=== PATIENT | female | born 1935 | race Caucasian/White ===

== ENCOUNTER 2017-04-11 17:42 | Emergency (ER) | payer MEDICARE, BC ==
[~2017-04-11] VITALS: Ht 157.5 cm; Wt 60.0 kg
[2017-04-11 17:43] VITALS: BP 140/70; PULSE 112; RESP 18; TEMP 98.2; O2SAT 94
--- NOTE | 2017-04-11 18:17 | PD ---
HPI Chief Complaint: Neuro Symptoms/ Deficits Time Seen by Provider: 18:01 Travel History International Travel<30 days: No Contact w/Intl Traveler<30days: No Traveled to known affect area: No History of Present Illness HPI 81-year-old female presents to the emergency department with concern of worsening of slurred speech and dizziness today. She has had dizziness and slurred speech for a week and was seen at [facility] on Wednesday and had an MRI of the brain and a CTA of the neck, which per the patient showed an aneurysm ; she has the reports with her. The MRI of the brain without contrast showed no acute intracranial process. The CT of the neck showed no hemodynamically significant stenosis or occlusion in the extracranial carotid or vertebral arteries. She is supposed to follow-up with a neurosurgeon in [facility] that she would rather follow up with somebody from [place]. She denies headache. Denies focal deficits or weakness. Denies change in gait. Denies weakness. Denies confusion, disorientation. Explains dizziness as if she feels like she is drunk. History of kidney stones. Denies other significant past medical history. Allergies to morphine, Versed and Meperidine. Primary care provider is Dr. Wood. She has no other medical complaints. No other modifying factors or associated signs and symptoms. [facility] Social History Tobacco Use: No Allergies-Medications (Allergen,Severity, Reaction): Coded Allergies: meperidine (Verified Allergy, Intermediate, confused, 04/11/17) midazolam (Verified Allergy, Intermediate, confused, 04/11/17) morphine (Verified Allergy, Intermediate, confused, 04/11/17) Review of Systems Except as stated in HPI: all other systems reviewed are Neg Physical Exam Narrative GENERAL: Well-nourished, well-developed elderly, female patient, in no acute distress SKIN: Warm and dry. HEAD: Atraumatic. Normocephalic. No facial droop noted. Tongue midline. Nose test normal. EYES: Pupils equal and round at 3 mm with brisk reaction. No scleral icterus. No injection or drainage. PERRLA. EOMI. ENT: Mucosa pink and moist. Airway patent. NECK: Trachea midline. No lymphadenopathy. CARDIOVASCULAR: Regular rate and rhythm. No murmur appreciated. RESPIRATORY: No accessory muscle use. Clear to auscultation. Breath sounds equal bilaterally. GASTROINTESTINAL: Abdomen soft, non-tender, nondistended. Hepatic and splenic margins not palpable. Bowel sounds are active 4 quadrants. MUSCULOSKELETAL: No obvious deformities. No clubbing. No cyanosis. No edema. NEUROLOGICAL: Awake and alert. Oriented 3. No obvious cranial nerve deficits. Motor grossly within normal limits. Normal speech. No ataxia. Heel- to-anthony test normal. Finger to nose test normal. No mid-line drift. No motor drift to upper and lower extremities. Moves all extremities. 5/5 strength to all extremities. PSYCHIATRIC: Appropriate mood and affect; insight and judgment normal. Data Data Last Documented VS Vital Signs Date Time Temp Pulse Resp B/P (MAP) Pulse Ox O2 Delivery O2 Flow Rate FiO2 04/11/17 17:43 98.2 112 18 140/70 (93) 94 Orders Orders Electrocardiogram (04/11/17 18:23) Basic Metabolic Panel (Bmp) (04/11/17 18:23) Complete Blood Count With Diff (04/11/17 18:23) Iv Access Insert/Monitor (04/11/17 18:23) [facility] Medical Decision Making Medical Screen Exam Complete: Yes Emergency Medical Condition: Yes Medical Record Reviewed: Yes Differential Diagnosis TIA, brain bleed, tumor, stroke, aneurysm, dizziness, medical clearance Narrative Course AMA: The risks of leaving against medical advice without further evaluation treatment were discussed with the patient. These risks include cardiac dysfunction, cardiac dysrhythmia, possible heart attack, possible stroke or . The patient indicated understanding of these risks and appeared to have the capacity to make this decision. Diagnosis Primary Impression: Left against medical advice Disposition: 07 AGAINST MEDICAL ADVICE Rossi Vines Apr 11, 2017 18:17
== END 2017-04-11 18:58 | disposition left against medical advice (07) ==
LOC: NEPC 17:42
DX: R47.81 Slurred speech (principal); R42 Dizziness and giddiness
CPT/HCPCS: 99281